=== PATIENT | female | born 1985 | race Caucasian/White ===

== ENCOUNTER → 2020-03-24 | Outpatient (CLI) | payer BC ==
[2020-03-24 14:10] VITALS: BP 123/69; PULSE 97; RESP 16; TEMP 98.3; BMI 55.6
--- NOTE | 2020-03-24 15:42 | P.HPBAR ---
Bariatric H&P - History & Physicial H&P Date: 03/24/20 History & Physicial: Visit/CC: Initial Visit Patient initial contact: Initial weight: 140.16 kg Initial weight in pounds: 309.00 Height: 5 ft 2.5 in Initial BMI: 55.6 Last weight: Current weight: 140.16 kg Current weight in pounds: 309.00 Current BMI: 55.6 Kindred body weight (based on NIH guidelines): 51.029 kg Excess body weight loss: 0.0% The patient is a 34 year-old F who presents for Bariatric Assessment. Patient here today to discuss weight loss surgery. Patient has been interested in sleeve gastrectomy for the last 8-10 years. She said she had twins born 7 years ago. They have had some health issues over the years. Now that they are doing better she would like to focus on her own health. BMI 55. Patient with history of mild reflux and gestational diabetes. Denies other health issues. Past surgical history include , nasal. Denies history of DVT or dysphagia. No tobacco use. Patient would like to avoid gastric bypass because of dumping syndrome she states. Here today with her . Review of Systems The patient denies any acute changes in vision or hearing, no dysphagia or odynophagia, no chest pain or shortness of breath, no dysuria or hematuria, no headache, no runny nose, no rectal bleeding or melena, no unexplained weight loss Past Medical History Smoking Status: Unknown if ever smoked Surgical - Exam Vital Signs Temp Pulse Resp BP 98.3 F 97 16 123/69 03/24/20 14:07 03/24/20 14:07 03/24/20 14:07 03/24/20 14:07 Physical exam: General: Well-developed, well-nourished HEENT: Normocephalic, sclerae nonicteric Abdomen: Nontender, nondistended Extremities: No edema Neuro: Alert and oriented Bariatric Assessment & Plan (1) Morbid obesity with BMI of 50.0-59.9, adult Narrative/Plan: 34-year-old female with morbid obesity. Surgical and nonsurgical options reviewed in detail with the patient and her . Patient states she had not considered gastric bypass that much because of the dumping syndrome she had heard about. We discussed that the average weight loss with that surgery would be slightly more and given her elevated BMI that she should consider this as a viable option. At this time we'll tentatively proceed with plans for elective sleeve gastrectomy. If she is interested in investigating gastric bypass further I offered to make an appointment for her to see a bariatric surgeon that performs that surgery. We'll see patient next at time of upper endoscopy. Awai t proper documentation. Status: Acute Bariatric Checklist Checklist: Plan: Checklist: EGD: 1. Hiatal hernia: 2. H. Pylori: HgbA1c: Vitamin D: Smoking: Primary care physician referral: Christina Psychiatry clearance: Cardiology clearance: Sleep study: Diet journal: VTE risk score: VTE risk level: Rehab needs at discharge:
[2020-03-24 15:46] LABS: MCH 29.9 pg (25.0-35.0); MCHC 33.3 g/dL (31.0-37.0); MCV 89.7 fL (80.0-100.0); Mean Platelet Volume 7.2; Platelet Count 314 k/uL (150-450); RBC 4.01 m/uL (3.80-5.40); RDW 13.6 % (11.5-15.5); WBC 9.2 k/uL (3.8-10.6)
[2020-03-24 23:32] LABS: African American GFR (CKD) 83.9 (60.0-200.0); Albumin 4.4 g/dL (3.80-4.90); Albumin/Globulin Ratio 1.83 (1.60-3.17); Anion Gap 9.5 mmol/L (4.00-12.00); Calcium 8.9 mg/dL (8.7-10.3); Carbon Dioxide 24.5 mmol/L (21.6-31.8); Globulin 2.4 g/dL (1.6-3.3); Non-African American GFR(CKD) 72.4 (60.0-200.0); Potassium 4.3 mmol/L (3.5-5.5); Total Bilirubin 0.2 mg/dL (0.2-1.2); Total Protein 6.8 g/dL (6.2-8.2)
[2020-03-24 23:42] LABS: Folate, Serum 8.6 ng/mL
== END | disposition home or self-care (01) ==
LOC: BARWHC3 13:12
PROVIDERS: ATTEND Surgery
DX: E66.01 Morbid (severe) obesity due to excess calories (principal); D50.9 Iron deficiency anemia, unspecified; K90.89 Other intestinal malabsorption; E55.9 Vitamin D deficiency, unspecified; Z68.43 Body mass index [BMI] 50.0-59.9, adult
CPT/HCPCS: 80053; 82306; 82607; 82746; 83036; 83540; 84425; 85027; 93005; 99203

== ENCOUNTER 2020-04-14 09:24 | Day surgery (SDC) | payer BC ==
[2020-04-10 15:33] VITALS: BMI 55.6
[~2020-04-14 09:24] MED LIST: LACTATED RINGERS 1,000 ML IV SCH; LIDOCAINE 1% (10MG/ML) FOR IV START INTRADERMA PRN
[2020-04-14 09:57] VITALS: RESP 20; TEMP 97
[2020-04-14] MEDS ORDERED: PROPOFOL 10 MG/ML 20 ML VIAL IV ONE (10:06)
[2020-04-14] MEDS ORDERED: LIDOCAINE 1% INJ 10MG/ML (20 ML MDV) ONE (10:06)
[2020-04-14] MEDS ORDERED: MIDAZOLAM 2 MG/2 ML VIAL ONE (10:06)
[2020-04-14] MEDS ORDERED: GLYCOPYRROLATE 0.2 MG/ML 2 ML VIAL ONE (10:06)
[2020-04-14] MEDS ORDERED: KETAMINE 10 MG/ML 20 ML VIAL ONE (10:06)
--- NOTE | 2020-04-14 10:10 | P.GSHP ---
History of Present Illness H&P Date: 04/14/20 Chief Complaint: GERD 34 row female seen in the bariatric clinic. Interested in sleeve gastrectomy. History of mild reflux. No dysphagia. Past Medical History Past Medical History: No Reported History Additional Past Medical History / Comment(s): RASH IN ABDOMINAL FOLD History of Any Multi-Drug Resistant Organisms: None Reported Past Surgical History: Section, Tonsillectomy Additional Past Surgical History / Comment(s): deviated septum surgery Past Anesthesia/Blood Transfusion Reactions: No Reported Reaction Past Psychological History: Anxiety, Depression Smoking Status: Never smoker Past Alcohol Use History: Occasional Past Drug Use History: None Reported - Past Family History Mother Family Medical History: No Reported History Medications and Allergies Home Medications Medication Instructions Recorded Confirmed Type Venlafaxine HCl [Effexor XR] 150 mg PO HS 03/25/20 04/10/20 History traZODone HCL 300 mg PO HS 03/25/20 04/10/20 History Multivitamin with Iron 1 each PO DAILY 04/10/20 04/10/20 History [Multivitamins with Iron] Allergies Allergy/AdvReac Type Severity Reaction Status Date / Time diphenhydramine Allergy Anaphylaxis Verified 04/10/20 15:13 [From Benadryl] Surgical - Exam Vital Signs Temp Pulse Resp BP Pulse Ox 97 F L 66 20 123/73 94 L 04/14/20 09:39 04/14/20 09:39 04/14/20 09:39 04/14/20 09:39 04/14/20 09:39 Physical exam: General: Well-developed, well-nourished HEENT: Normocephalic, sclerae nonicteric Abdomen: Nontender, nondistended Extremities: No edema Neuro: Alert and oriented Assessment and Plan (1) GERD (gastroesophageal reflux disease) Narrative/Plan: Will proceed with upper endoscopy Current Visit: Yes Status: Acute Code(s): K21.9 - GASTRO-ESOPHAGEAL REFLUX DISEASE WITHOUT ESOPHAGITIS SNOMED Code(s): 674079792
--- NOTE | 2020-04-14 10:17 | P.PCN ---
Date of Procedure: 04/14/20 Procedure(s) Performed: Preoperative Dx: GERD Postoperative Dx: Mild gastritis Procedure: EGD with Bx Anesthesia: Sedation Endoscopist: Dr. Mir Specimens: Antrum Endoscopic Procedure: The patient was on the endoscopy table in the left decubitus position. The Olympus gastroscope was inserted into the oropharynx and passed under direct visualization to the region of the third portion of the duodenum. From that point the scope was slowly withdrawn inspecting all surfaces carefully. There were no neoplastic inflammatory or polypoid lesions throughout the duodenum. The pylorus was widely patent. The stomach was carefully inspected. There was mild gastritis present. A biopsy of the antrum took place to rule out H. pylori. Retroflexion revealed a normal hiatus. The esophagus was then carefully examined. There were no neoplastic inflammatory or polypoid lesions throughout the visualized esophagus. The patient was then taken to the recovery room in stable condition per anesthesia guidelines. Recommendations: Await biopsy results. Continue with bariatric workup
[2020-04-14 10:39] VITALS: BP 114/62; PULSE 71
== END 2020-04-14 10:53 | disposition home or self-care (01) ==
LOC: ORWHC2ENDO 09:24
PROVIDERS: ATTEND Surgery
DX: K29.50 Unspecified chronic gastritis without bleeding (principal); R21 Rash and other nonspecific skin eruption; Z98.891 History of uterine scar from previous surgery; Z90.89 Acquired absence of other organs; Z98.890 Other specified postprocedural states; F41.9 Anxiety disorder, unspecified; F32.9 Major depressive disorder, single episode, unspecified; E66.01 Morbid (severe) obesity due to excess calories; Z68.43 Body mass index [BMI] 50.0-59.9, adult; Z79.899 Other long term (current) drug therapy; Z88.8 Allergy status to other drugs, medicaments and biological substances
CPT/HCPCS: 81025; 88305; 43239; J2250; J2001; J2704

== ENCOUNTER → 2020-05-05 | Outpatient (CLI) | payer BC ==
[2020-05-05 15:06] VITALS: BP 139/84; PULSE 96; RESP 16; TEMP 98.3; BMI 54.8
--- NOTE | 2020-05-05 16:34 | P.BASOAP ---
Subjective Progress Note Date: 05/05/20 Principal diagnosis: Morbid obesity Patient returns today for recheck. Last seen 04/14 at the time of her upper endoscopy. Mild gastritis was noted. Biopsies negative for H. pylori. No other changes to her history and physical from previous. Objective - Vital Signs Vital signs: Vital Signs Temp 98.3 F 05/05/20 15:03 Pulse 96 05/05/20 15:03 Resp 16 05/05/20 15:03 BP 139/84 05/05/20 15:03 Pulse Ox Intake & Output 05/04/20 05/05/20 05/05/20 18:59 06:59 18:59 Weight 138.346 kg - Exam Abdomen: Soft, nontender, nondistended Assessment/Plan (1) Morbid obesity with BMI of 50.0-59.9, adult Narrative/Plan: Patient doing well at this time. She is interested in proceeding with sleeve g astrectomy. Recent endoscopy reviewed. Surgical consent form reviewed as well. Discussed options of robotic approach. She is agreeable. We'll proceed. Plan: Date: 05/05/20 Initial Weight: 140.16 kg Initial BMI: 55.6 Current Weight: 138.346 kg Current BMI: 54.8 Type of Surgery: Total Volume in Band: Previous Volume: Volume Removed: Volume Added: Band Size:
== END ==
LOC: BARWHC3 14:24
PROVIDERS: ATTEND Surgery
DX: E66.01 Morbid (severe) obesity due to excess calories (principal); Z68.43 Body mass index [BMI] 50.0-59.9, adult
CPT/HCPCS: 99211

== ENCOUNTER → 2020-05-25 | Outpatient (CLI) | payer BC | CPT/HCPCS: 97804 ==

== ENCOUNTER → 2020-07-23 | Outpatient (CLI) | payer BC ==
[2020-07-23 13:26] LABS: Basophils % (A) 0 %; Eosinophils # (A) 0.1 k/uL (0-0.7); Eosinophils % (A) 1 %; HCT 36.8 % (34.0-46.0); HGB 12.5 gm/dL (11.4-16.0); Lymphocytes # (A) 2.2 k/uL (1.0-4.8); Lymphocytes % (A) 22 %; MCH 29.9 pg (25.0-35.0); MCHC 33.9 g/dL (31.0-37.0); MCV 88.3 fL (80.0-100.0); Mean Platelet Volume 7.3; Monocytes # (A) 0.5 k/uL (0-1.0); Monocytes % (A) 5 %; Neutrophils % (A) 71 %; Platelet Count 335 k/uL (150-450); RBC 4.17 m/uL (3.80-5.40); RDW 14.1 % (11.5-15.5); WBC 9.8 k/uL (3.8-10.6)
[2020-07-23 13:37] LABS: ALT 21 U/L (4-34); AST 22 U/L (14-36); African American GFR (CKD) >90 (>60 ml/min/1.73 sqM); Albumin 4.5 g/dL (3.5-5.0); Alkaline Phosphatase 68 U/L (38-126); Anion Gap 10 mmol/L; Blood Urea Nitrogen 17 mg/dL (7-17); Calcium 9.7 mg/dL (8.4-10.2); Carbon Dioxide 24 mmol/L (22-30); Chloride 105 mmol/L (98-107); Glucose 92 mg/dL (74-99); Non-African American GFR(CKD) >90 (>60 ml/min/1.73 sqM); Potassium 4.3 mmol/L (3.5-5.1); Sodium 139 mmol/L (137-145); Total Bilirubin 0.2 mg/dL (0.2-1.3); Total Protein 7.6 g/dL (6.3-8.2)
== END | disposition home or self-care (01) ==
LOC: LABPAT 12:39
PROVIDERS: ATTEND Surgery
DX: Z01.812 Encounter for preprocedural laboratory examination (principal)
CPT/HCPCS: 80053; 85025

== ENCOUNTER 2020-07-27 07:45 | Inpatient (IN) | payer BC ==
[~2020-07-27 07:45] MED LIST changes: +ACETAMINOPHEN TAB 500 MG TAB PO PRN; +DEXAMETHASONE SOD PHOSPHATE 4 MG/ML 1 ML VIAL IV ONE; +ENOXAPARIN 40 MG/0.4 ML SYRINGE SQ PRN; +MIDAZOLAM 2 MG/2 ML VIAL IV PRN; +ONDANSETRON 4 MG/2 ML VIAL IVP ONE; +ONDANSETRON 4 MG/2 ML VIAL IVP PRN; +ceFAZolin 3 GM in SODIUM CHLORIDE 0.9% 100 ML IVPB PRN
--- NOTE | 2020-07-27 09:04 | P.GSHP ---
History of Present Illness H&P Date: 07/27/20 Chief Complaint: Morbid obesity 34-year-old female presents today for elective sleeve gastrectomy. Patient first seen earlier this year. Patient interested in sleeve gastrectomy rather than bypass. BMI 53. No tobacco use. History of mild reflux. No significant abdominal surgeries. Recent upper endoscopy showed mild gastritis. Patient denies history of DVT or dysphagia the past. Past Medical History Past Medical History: No Reported History, Skin Disorder Additional Past Medical History / Comment(s): Hx gestational diabetes. Occ rash in abd folds. History of Any Multi-Drug Resistant Organisms: None Reported Past Surgical History: Section, Tonsillectomy Additional Past Surgical History / Comment(s): deviated septum surgery, EGD Past Anesthesia/Blood Transfusion Reactions: No Reported Reaction Smoking Status: Never smoker - Past Family History Mother Family Medical History: No Reported History Medications and Allergies Home Medications Medication Instructions Recorded Confirmed Type Venlafaxine HCl [Effexor XR] 150 mg PO HS 03/25/20 07/22/20 History traZODone HCL 300 mg PO HS 03/25/20 07/22/20 History Multivitamin with Iron 1 each PO DAILY 04/10/20 07/22/20 History [Multivitamins with Iron] Ibuprofen [Motrin Ib] 400 - 600 mg PO Q8H PRN 07/22/20 07/22/20 History Allergies Allergy/AdvReac Type Severity Reaction Status Date / Time diphenhydramine Allergy Anaphylaxis Verified 07/22/20 15:37 [From Benadryl] Surgical - Exam Physical exam: General: Well-developed, well-nourished HEENT: Normocephalic, sclerae nonicteric Abdomen: Nontender, nondistended Extremities: No edema Neuro: Alert and oriented Assessment and Plan (1) Morbid obesity with BMI of 50.0-59.9, adult Narrative/Plan: Will proceed with laparoscopic sleeve gastrectomy at this time. The risks of bleeding, infection, stenosis, stricture, leak, abscess, fistula formation, peritonitis, poor weight loss, reflux, vomiting, conversion to an open procedure, aborting sleeve gastrectomy, IL, PE, DVT, and were discussed. The patient understands and wishes to proceed. Current Visit: No Status: Acute Code(s): E66.01 - MORBID (SEVERE) OBESITY DUE TO EXCESS CALORIES; Z68.43 - BODY MASS INDEX [BMI] 50.0-59.9, ADULT SNOMED Code(s): 718156448
[2020-07-27] MEDS ORDERED: LIDOCAINE 1% INJ 10MG/ML (20 ML MDV) ONE (10:17)
[2020-07-27] MEDS ORDERED: MIDAZOLAM 2 MG/2 ML VIAL ONE (10:17)
[2020-07-27] MEDS ORDERED: ROCURONIUM 10 MG/ML (5 ML VIAL) IV ONE (10:17)
[2020-07-27] MEDS ORDERED: SUCCINYLCHOLINE CHLORIDE VIAL 200 MG/10 ML VIAL IV ONE (10:17)
[2020-07-27] MEDS ORDERED: fentaNYL (PF) 50 MCG/ML 2 ML AMP ONE (10:17)
[2020-07-27] MEDS ORDERED: PROPOFOL 10 MG/ML 20 ML VIAL IV ONE (10:17)
[2020-07-27] MEDS ORDERED: BUPIVACAIN-EPI 0.5%-1:200,000 30 ML VIAL SQ ONE ×2 (11:09→12:14)
[2020-07-27] MEDS ORDERED: NALOXONE 0.4 MG/ML 1 ML VIAL IV PRN (12:32)
[2020-07-27] MEDS ORDERED: HYOSCYAMINE ORAL DROPS 1.875 MG/15 ML BOTTLE PO PRN (12:32)
--- NOTE | 2020-07-27 12:40 | P.OP ---
Date of Procedure: 07/27/20 Procedure(s) Performed: PREOPERATIVE DIAGNOSIS: Morbid obesity, GERD, borderline diabetes POSTOPERATIVE DIAGNOSIS: Same PROCEDURE: Laparoscopic sleeve gastrectomy SURGEON: Clarke EBL: Minimal ANESTHESIA: General COMPLICATIONS: None OPERATIVE PROCEDURE: Patient was placed in the operating table in the supine position. She was placed under general anesthesia at that time. The abdomen was prepped and draped in sterile fashion after the patient was placed in lithotomy. A 5 mm optical trocar was used to enter the abdominal cavity in the left upper quadrant. Insufflation took place to 15 millimeters mercury. An additional right subxiphoid 5 mm trocar was then placed under direct visualization and then removed. 2 additional 5 mm trochars were placed in the right upper quadrant and left upper quadrant under direct visualization and a 15 mm trocar in the supraumbilical location. The liver was retracted using a medium Paulette liver retractor through the right subxiphoid trocar site. The hiatus was inspected. The patient had no visible hiatal hernia At that point I moved to the mid aspect of the greater curvature the stomach. The short gastric vasculature was divided using a LigaSure device proximally. I then switched and divided the short gastrics distally to a 3-4 cm from the pylorus. The dissection took place up to the left diaphragmatic crura at that point. The posterior short gastrics were likewise divided using the LigaSure device. Once the stomach was fully mobilized the blunt tipped 40-Arabic bougie dilator was advanced into the stomach and advanced all the way to the prepyloric location. A black echelon 60 stapler with echelon Endopath staple line reinforcement was utilized and fired tangentially across the antrum taking care to avoid narrowing at the incisura angularis. Subsequent firings of the stapler took place. A total of 5 green echelon 60 staplers with echelon Endopath staple line reinforcement took place proximally staying on the outer edge of our dilator. Once we reached the most proximal portion of the stomach a single firing of the gold echelon [address] The oral gastric tube was reinserted. The stomach was insufflated with approximately 100 mL of methylene blue. No evidence of leak or obstruction was seen. Tisseel fibrin glue was used along the length of the staple line. The stomach remnant was removed from the 15 mm trocar site without difficulty. The fascia at the 15 more site was closed using interrupted 0 Vicryl sutures with the laparoscopic suture passer and Guan[place]ito Melchor technique. The insufflation was evacuated. The skin at all 5 incisions were closed using 4-0 Monocryl sutures. Skin glue was then applied. DISPOSITION: Stable to recovery room
[2020-07-27] MEDS: HYDROmorphone 0.5 MG/0.5 ML SYRINGE IVP PRN ×5 (12:46→20:25)
[2020-07-27] MEDS: ALBUTEROL NEBULIZED 2.5 MG/3 ML INHALATION SCH ×2 (16:24→19:52)
[2020-07-27] MEDS: 0.9% NACL WITH KCL 20 MEQ/L 1,000 ML IV SCH ×2 (17:59→20:21)
[2020-07-27] MEDS: ACETAMINOPHEN IV (For NPO) 1,000 MG in EMPTY BAG 1 BAG IVPB SCH ×2 (17:59→22:50)
[2020-07-27] MEDS: ENOXAPARIN 40 MG/0.4 ML SYRINGE SQ SCH (20:20)
--- NOTE | 2020-07-27 23:49 | P.CONS ---
History of Present Illness - Reason for Consult Consult date: 07/27/20 post op medical management Requesting physician: Db Mir - Chief Complaint elective bariatric surgery - History of Present Illness 34-year-old female with morbid obesity Patient comes in today for scheduled elective bariatric surgery she elected to have laparoscopic sleeve gastrectomy patient tolerated procedure well denies any observed immediate postoperative complications denies any chest pain trouble breathing denies any nausea vomiting denies any significant abdominal pain she uses the bathroom passed urine denies any GI bleeding. Patient laying comfor table in bed she denies any medical history she denies any medical concerns at this point Review of Systems Pertinent positives as noted in HPI. All other systems were reviewed and are negative Past Medical History Past Medical History: No Reported History, Skin Disorder Additional Past Medical History / Comment(s): Hx gestational diabetes. Occ rash in abd folds. History of Any Multi-Drug Resistant Organisms: None Reported Past Surgical History: Bariatric Surgery, Section, Tonsillectomy Additional Past Surgical History / Comment(s): deviated septum surgery, EGD, SLEEVE JULY 2020 Past Anesthesia/Blood Transfusion Reactions: No Reported Reaction Past Psychological History: Anxiety, Depression Smoking Status: Never smoker Past Alcohol Use History: Occasional Past Drug Use History: None Reported - Past Family History Mother Family Medical History: No Reported History Medications and Allergies Home Medications Medication Instructions Recorded Confirmed Type Venlafaxine HCl [Effexor XR] 150 mg PO HS 03/25/20 07/27/20 History traZODone HCL 300 mg PO HS 03/25/20 07/27/20 History Multivitamin with Iron 1 each PO DAILY 04/10/20 07/27/20 History [Multivitamins with Iron] Ibuprofen [Motrin Ib] 400 - 600 mg PO Q8H PRN 07/22/20 07/27/20 History Allergies Allergy/AdvReac Type Severity Reaction Status Date / Time diphenhydramine Allergy Anaphylaxis Verified 07/27/20 09:19 [From Benadryl] Physical Exam Vitals: Vital Signs Temp Pulse Pulse Resp BP Pulse Ox 07/27/20 20:02 92 18 07/27/20 19:53 95 16 07/27/20 19:10 97.8 F 94 16 150/71 95 07/27/20 16:28 63 07/27/20 16:00 70 147/83 07/27/20 15:45 69 144/82 07/27/20 15:30 82 133/85 07/27/20 15:15 67 153/83 07/27/20 15:00 71 139/85 07/27/20 14:45 67 144/84 07/27/20 14:29 97.5 F L 78 17 148/72 93 L 07/27/20 13:30 75 14 158/88 96 07/27/20 13:15 85 14 159/81 96 07/27/20 13:00 80 16 164/89 99 07/27/20 12:45 82 16 159/90 97 07/27/20 12:31 98.2 F 98 14 147/84 96 07/27/20 09:25 97.6 F 102 H 16 134/68 98 Intake and Output 07/27/20 07/27/20 07/27/20 06:59 14:59 22:59 Intake Total 900 Output Total 10 200 Balance 890 -200 Intake: IV 900 Output: Urine 200 Estimated Blood Loss 10 Other: Weight 133.1 kg Constitutional: No acute distress, conversant, pleasant Eyes: Anicteric sclerae, moist conjunctiva, Pupils equal round reactive to light ENMT: NC/AT Oropharynx clear, no erythema, or exudates Neck: Supple, FROM, no masses, or JVD No carotid bruits No thyromegaly Lungs: Clear to auscultation Clear to percussion Normal respiratory effort, no accessory muscle use Cardiovascular: Heart regular in rate and rhythm, No murmurs, gallops, or rubs No peripheral edema Abdominal: Soft Nontender, no guarding, rebound or rigidity Abdomen moving with respiration Normoactive bowel sounds No hepatomegaly, No splenomegaly No palpable mass No abdominal wall hernia noted Skin: Normal temperature, tone, texture, turgor No induration No subcutaneous nodules No rash, lesions No ulcers Extremities: No digital cyanosis No clubbing Pedal pulses intact and symmetrical Radial pulses intact and symmetrical No calf tenderness Psychiatric: Alert and oriented to person, place and time Appropriate affect fair judgement Neuro Muscles Strength 5/5 in all 4 extremities Sensation to light touch grossly present throughout Cranial nerves II-XII grossly intact No focal sensory deficits Lymphatics: no palpable cervical or supraclavicular , or inguinal lymph nodes Assessment and Plan Assessment: Morbid obesity status post laparoscopic sleeve gastrectomy postoperative day 0 DVT prophylaxis and pain control per primary team Continue with IV fluid hydration Follow-up CBC and renal function Encouraged to use incentive spirometry Continue with SCDs Vital signs stable Thank you for allowing us to participate in the care of this patient. Do not hesitate to contact us with questions. Someone can be reached from the [facility] hospitalist group at all hours of the day at [phone].
[2020-07-28] MEDS: 0.9% NACL WITH KCL 20 MEQ/L 1,000 ML IV SCH (02:43)
[2020-07-28] MEDS: ACETAMINOPHEN IV (For NPO) 1,000 MG in EMPTY BAG 1 BAG IVPB SCH ×4 (05:28→23:50)
[2020-07-28] MEDS: ALBUTEROL NEBULIZED 2.5 MG/3 ML INHALATION SCH ×4 (07:04→20:00)
[2020-07-28] MEDS: PANTOPRAZOLE 40 MG/10 ML VIAL IV SCH (08:34)
[2020-07-28] MEDS: ENOXAPARIN 40 MG/0.4 ML SYRINGE SQ SCH ×2 (08:34→21:52)
[2020-07-28] MEDS: ONDANSETRON 4 MG/2 ML VIAL IVP PRN ×2 (08:37→16:23)
[2020-07-28] MEDS: SIMETHICONE 40 MG/0.6 ML DROPS 2,000 MG/30 ML BOTTLE PO PRN ×2 (09:03→16:09)
[2020-07-28] MEDS: HYDROmorphone 0.5 MG/0.5 ML SYRINGE IVP PRN ×2 (09:04→16:07)
--- NOTE | 2020-07-28 09:12 | FL ---
EXAMINATION TYPE: FL UGI DATE OF EXAM: 07/28/2020 COMPARISON: NONE HISTORY: Postoperative bariatric surgery/gastric sleeve TECHNIQUE: A single contrast UGI study is performed. A total of 28 seconds of fluoroscopic time was utilized during procedure and 6 images obtained. FINDINGS: Isovue 370 was administered orally. There is slight delay of contrast transit from the esophagus into the stomach, likely due to recent postoperative status. Contrast traverses normally from the stomach into the small bowel. No evidence for leak. Surgical srikanth overlie the epigastric region. IMPRESSION: Slight delay of contrast from the esophagus to the stomach without stricture is likely due to recent postoperative status. No evidence for leak.
[2020-07-28 10:00] VITALS: BMI 52.8
[2020-07-28 10:18] LABS: Basophils # (A) 0.01 X 10*3/uL (0.00-0.10); Basophils % (A) 0.1 %; Eosinophils # (A) 0 X 10*3/uL (0.04-0.35); Eosinophils % (A) 0 %; HCT 40.3 % (37.2-46.3); HGB 12.6 g/dL (12.0-15.0); Lymphocytes # (A) 1.21 X 10*3/uL (0.90-5.00); Lymphocytes % (A) 9.5 %; MCH 29.5 pg (27.0-32.0); MCHC 31.3 g/dL (32.0-37.0); MCV 94.4 fL (80.0-97.0); Mean Platelet Volume 10.9 fL (9.5-12.2); Monocytes # (A) 0.98 X 10*3/uL (0.20-1.00); Monocytes % (A) 7.7 %; Neutrophils # (A) 10.57 X 10*3/uL (1.80-7.70); Neutrophils % (A) 82.5 %; Platelet Count 352 X 10*3/uL (140-440); RBC 4.27 X 10*6/uL (4.10-5.20); RDW 13.7 % (11.5-14.5)
[2020-07-28] MEDS: 1: MVI, ADULT NO.4 WITH VIT K 10 ML, THIAMINE 100 MG, FOLIC ACID 1 MG, POTASSIUM CHLORID IV SCH ×18 (10:50→21:55)
[2020-07-28 10:51] LABS: African American GFR (CKD) 109.9 (60.0-200.0); Albumin 4.4 g/dL (3.80-4.90); Albumin/Globulin Ratio 1.42 (1.60-3.17); Anion Gap 11.7 mmol/L (4.00-12.00); BUN/Creat Ratio 12.5 Ratio (12.00-20.00); Carbon Dioxide 22.3 mmol/L (21.6-31.8); Globulin 3.1 g/dL (1.6-3.3); Magnesium 2.2 mg/dL (1.5-2.4); Non-African American GFR(CKD) 94.8 (60.0-200.0); Phosphorus 2.7 mg/dL (2.4-5.1); Potassium 4.8 mmol/L (3.5-5.5); Total Bilirubin 0.4 mg/dL (0.3-1.2); Total Protein 7.5 g/dL (6.2-8.2)
--- NOTE | 2020-07-28 12:09 | P.PN ---
<Kathy Martin - Last Filed: 07/28/20 12:02> Subjective Progress Note Date: 07/28/20 CHIEF COMPLAINT: Morbid obesity HISTORY OF PRESENT ILLNESS: Patient is status post laparoscopic sleeve gastrectomy. She does complain of abdominal pain. But does report that is controlled with pain medication. She denies any flatus or BM. She did have some nausea. She had her upper GI which showed a slight delay of contrast from the esophagus to the stomach without stricture is likely due to recent postoperative status. No evidence for leak. She has been started on her bariatric clear liquid diet. Afebrile. WBC elevated at 12.80. Patient did get a dose of Decadron. hemoglobin 12.6 creatinine 0.8 magnesium 2.2 PHYSICAL EXAM: VITAL SIGNS: Reviewed. GENERAL: Well-developed in no acute distress. HEENT: No sclera icterus. Extraocular movements grossly intact. Moist buccal mucosa. Head is atraumatic, normocephalic. ABDOMEN: Soft. Nondistended. NEUROLOGIC: Alert and oriented. Cranial nerves II through XII grossly intact. ASSESSMENT: 1. Morbid obesity status post laparoscopic sleeve gastrectomy 2. GERD 3. Borderline diabetic PLAN: -Continue bariatric clear liquid diet -Continue pain medication as needed -Continue IV fluids -Encourage patient to ambulate -Encourage patient to use incentive spirometer -GI prophylaxis Protonix and DVT prophylaxis Lovenox Physician Foster Care Case Manager note has been reviewed by physician. Signing provider agrees with the documented findings, assessment, and plan of care. Objective - Vital Signs Vital signs: Vital Signs Temp 98.1 F 07/28/20 08:00 Pulse 88 07/28/20 10:59 Resp 16 07/28/20 08:00 BP 112/70 07/28/20 08:00 Pulse Ox 99 07/28/20 08:00 Intake & Output 07/27/20 07/28/20 07/28/20 18:59 06:59 18:59 Intake Total 900 800 Output Total 210 Balance 690 800 Weight 133.1 kg 133.1 kg Intake: IV 900 Intake, IV Titration 800 Amount 0.9% NaCl with KCl 20 Meq 800 /l 1,000 ml @ 100 mls/hr IV .BY DURATION RADHA Rx#: [id number] Output: Urine 200 Estimated Blood Loss 10 Other: # Voids 2 - Labs CBC & Chem 7: 07/28/20 04:10 07/28/20 04:10 Labs: Abnormal Lab Results - Last 24 Hours (Table) 07/28/20 07/28/20 Range/Units 04:10 04:10 WBC 12.80 H (4.50-10.00) X 10*3/uL MCHC 31.3 L (32.0-37.0) g/dL Neutrophils # 10.57 H (1.80-7.70) X 10*3/uL Eosinophils # 0 L (0.04-0.35) X 10*3/uL Albumin/Globulin Ratio 1.42 L (1.60-3.17) g/dL <Db Mir - Last Filed: 07/28/20 17:17> Subjective As above. Patient doing fairly well. She did have some dry heaves today. Labs noted. Continue bariatric liquid diet. Add Toradol for pain control. Possible discharge tomorrow. Objective - Vital Signs Vital signs: Vital Signs Temp 97.8 F 07/28/20 14:00 Pulse 63 07/28/20 14:00 Resp 16 07/28/20 14:00 BP 103/61 07/28/20 14:00 Pulse Ox 100 07/28/20 14:00 Intake & Output 07/27/20 07/28/20 07/28/20 18:59 06:59 18:59 Intake Total 900 800 Output Total 210 Balance 690 800 Weight 133.1 kg 133.1 kg Intake: IV 900 Intake, IV Titration 800 Amount 0.9% NaCl with KCl 20 Meq 800 /l 1,000 ml @ 100 mls/hr IV .BY DURATION RADHA Rx#: [id number] Output: Urine 200 Estimated Blood Loss 10 Other: # Voids 2 - Labs CBC & Chem 7: 07/28/20 04:10 07/28/20 04:10 Labs: Abnormal Lab Results - Last 24 Hours (Table) 07/28/20 07/28/20 Range/Units 04:10 04:10 WBC 12.80 H (4.50-10.00) X 10*3/uL MCHC 31.3 L (32.0-37.0) g/dL Neutrophils # 10.57 H (1.80-7.70) X 10*3/uL Eosinophils # 0 L (0.04-0.35) X 10*3/uL Albumin/Globulin Ratio 1.42 L (1.60-3.17) g/dL Assessment and Plan (1) Morbid obesity with BMI of 50.0-59.9, adult Current Visit: Yes Status: Acute Code(s): E66.01 - MORBID (SEVERE) OBESITY DUE TO EXCESS CALORIES; Z68.43 - BODY MASS INDEX [BMI] 50.0-59.9, ADULT SNOMED Code(s): 605871537
--- NOTE | 2020-07-28 14:59 | P.PN ---
Subjective Progress Note Date: 07/28/20 Patient is doing fairly well today. She was up ambulating in the hallway when I saw her. She denies any abdominal pain. She is tolerating liquid diet with no difficulty. She did not pass gas as of yet. Objective - Vital Signs Vital signs: Vital Signs Temp 97.8 F 07/28/20 14:00 Pulse 63 07/28/20 14:00 Resp 16 07/28/20 14:00 BP 103/61 07/28/20 14:00 Pulse Ox 100 07/28/20 14:00 Intake & Output 07/27/20 07/28/20 07/28/20 18:59 06:59 18:59 Intake Total 900 800 Output Total 210 Balance 690 800 Weight 133.1 kg 133.1 kg Intake: IV 900 Intake, IV Titration 800 Amount 0.9% NaCl with KCl 20 Meq 800 /l 1,000 ml @ 100 mls/hr IV .BY DURATION RADHA Rx#: [id number] Output: Urine 200 Estimated Blood Loss 10 Other: # Voids 2 - Exam General: The patient is awake and alert, in no distress Eye: there is normal conjunctiva bilaterally. Neck: The neck is supple, there is no JVD. Cardiovascular: Normal S1-S2, no S3-S4, no murmurs. Respiratory: Lungs clear to auscultation bilaterally Gastrointestinal: Abdomen is soft, nontender Musculoskeletal: There is no pedal edema. Neurological:. Speech is normal. Skin: Skin is warm and dry - Labs CBC & Chem 7: 07/28/20 04:10 07/28/20 04:10 Labs: Abnormal Lab Results - Last 24 Hours (Table) 07/28/20 07/28/20 Range/Units 04:10 04:10 WBC 12.80 H (4.50-10.00) X 10*3/uL MCHC 31.3 L (32.0-37.0) g/dL Neutrophils # 10.57 H (1.80-7.70) X 10*3/uL Eosinophils # 0 L (0.04-0.35) X 10*3/uL Albumin/Globulin Ratio 1.42 L (1.60-3.17) g/dL Assessment and Plan Assessment: Morbid obesity status post laparoscopic sleeve gastrectomy postoperative day #1 Postoperative care, DVT prophylaxis, and pain control per primary team Today, I reviewed her lab work results. Mild leukocytosis is probably reactive Encouraged to use incentive spirometry Continue with SCDs Discharge planning per primary team
[2020-07-28] MEDS: KETOROLAC 15 MG/ML 1 ML VIAL IVP SCH ×2 (17:36→23:51)
[2020-07-28] MEDS ORDERED: ALPRAZolam 0.25 MG TAB PO PRN (20:18)
[2020-07-28] MEDS ORDERED: traZODone HCL 100 MG TAB PO SCH (21:00)
[2020-07-28] MEDS ORDERED: VENLAFAXINE HCL ER 150 MG CAP PO SCH (21:00)
[2020-07-29] MEDS: ACETAMINOPHEN IV (For NPO) 1,000 MG in EMPTY BAG 1 BAG IVPB SCH ×2 (05:35→11:33)
[2020-07-29] MEDS: KETOROLAC 15 MG/ML 1 ML VIAL IVP SCH ×2 (05:36→11:32)
[2020-07-29 05:46] LABS: Basophils % (A) 0 %; Eosinophils # (A) 0.1 k/uL (0-0.7); Eosinophils % (A) 1 %; HCT 33.2 % (34.0-46.0); HGB 11.2 gm/dL (11.4-16.0); Lymphocytes # (A) 2.1 k/uL (1.0-4.8); Lymphocytes % (A) 25 %; MCH 30.9 pg (25.0-35.0); MCHC 33.9 g/dL (31.0-37.0); MCV 91.3 fL (80.0-100.0); Mean Platelet Volume 7.3; Monocytes # (A) 0.5 k/uL (0-1.0); Monocytes % (A) 6 %; Neutrophils # (A) 5.7 k/uL (1.3-7.7); Neutrophils % (A) 67 %; Platelet Count 245 k/uL (150-450); RBC 3.64 m/uL (3.80-5.40); RDW 14.1 % (11.5-15.5); WBC 8.5 k/uL (3.8-10.6)
[2020-07-29 08:09] VITALS: RESP 18
[2020-07-29] MEDS: PANTOPRAZOLE 40 MG/10 ML VIAL IV SCH (08:36)
[2020-07-29] MEDS: ENOXAPARIN 40 MG/0.4 ML SYRINGE SQ SCH (08:36)
[2020-07-29] MEDS: 1: MVI, ADULT NO.4 WITH VIT K 10 ML, THIAMINE 100 MG, FOLIC ACID 1 MG, POTASSIUM CHLORID IV SCH ×6 (08:41)
[2020-07-29] MEDS: ALBUTEROL NEBULIZED 2.5 MG/3 ML INHALATION SCH ×2 (08:52→12:29)
--- NOTE | 2020-07-29 12:49 | P.DS ---
Providers Date of admission: 07/27/20 08:50 Expected date of discharge: 07/29/20 Attending physician: Db Mir Consults: 07/28/20 09:28 Consult Physician Routine Consulting Provider: Johny Palacios Consult Reason/Comments: medical management Do you want consulting provider notified?: Already Contacted Primary care physician: Nick Vasquez Hospital Course: Discharge diagnosis 1. Morbid obesity status post laparoscopic sleeve gastrectomy 2. GERD 3. Borderline diabetic Hospital course This is a 34-year-old female with a known history of morbid obesity, GERD and borderline diabetes. She has a BMI of 53. Also has a history of mild reflux. She is status post laparoscopic sleeve gastrectomy. Patient tolerated surgery well. Upper GI shows slight delay of contrast from the esophagus to the stomach without strictures likely due to recent postoperative status. No evidence of leak. Patient is tolerating bariatric clear liquid diet. Denies any nausea or vomiting. She is having flatus. She is up and ambulating. Her pain is controlled. Her incision sites are clean dry and intact. She's afebrile. She is stable for discharge. Please refer to chart for any further details. Physician Aircraft Stress Analyst note has been reviewed by physician. Signing provider agrees with the documented findings, assessment, and plan of care. Patient Condition at Discharge: Stable Plan - Discharge Summary Discharge Rx Participant: No New Discharge Prescriptions: New oxyCODONE HCL [OxyIR] 5 mg PO Q6H PRN 2 Days #5 tab PRN Reason: Pain Omeprazole [PriLOSEC] 40 mg PO DAILY #30 capsule. Acetaminophen Tab [Tylenol Tab] 650 mg PO Q4H PRN #30 tablet PRN Reason: Pain bisacodyL [Dulcolax] 5 mg PO DAILY PRN #10 tablet. PRN Reason: Constipation Simethicone 40 mg/0.6 ml Drops [Mylicon Drops] 40 mg PO PCHS PRN #30 ml PRN Reason: Gas Ondansetron Odt [Zofran Odt] 4 mg PO Q8HR PRN #9 tab PRN Reason: Nausea Continue Venlafaxine HCl [Effexor XR] 150 mg PO HS traZODone HCL 300 mg PO HS Multivitamin with Iron [Multivitamins with Iron] 1 each PO DAILY Discontinued Ibuprofen [Motrin Ib] 400 - 600 mg PO Q8H PRN PRN Reason: Pain Discharge Medication List Venlafaxine HCl [Effexor XR] 150 mg PO HS 03/25/20 [History] traZODone HCL 300 mg PO HS 03/25/20 [History] Multivitamin with Iron [Multivitamins with Iron] 1 each PO DAILY 04/10/20 [History] Acetaminophen Tab [Tylenol Tab] 650 mg PO Q4H PRN #30 tablet 07/29/20 [Rx] Omeprazole [PriLOSEC] 40 mg PO DAILY #30 capsule. 07/29/20 [Rx] Ondansetron Odt [Zofran Odt] 4 mg PO Q8HR PRN #9 tab 07/29/20 [Rx] Simethicone 40 mg/0.6 ml Drops [Mylicon Drops] 40 mg PO PCHS PRN #30 ml 07/29/20 [Rx] bisacodyL [Dulcolax] 5 mg PO DAILY PRN #10 tablet. 07/29/20 [Rx] oxyCODONE HCL [OxyIR] 5 mg PO Q6H PRN 2 Days #5 tab 07/29/20 [Rx] [facility]Ref[place] [place] [facility] Patient Instructions/Handouts: Nutrition after Bariatric Surgery (DC), Nutrition after Bariatric Surgery (GEN), Laparoscopic Sleeve Gastrectomy (DC), Laparoscopic Sleeve Gastrectomy (GEN) Activity/Diet/Wound Care/Special Instructions: No driving while taking OxyIR No lifting over 10 pounds You may shower. No soaking or tub baths for 2 weeks Very light activity until you are reevaluated at your follow up appointment with your surgeon Continue bariatric clear liquid diet Discharge Disposition: HOME SELF-CARE
--- NOTE | 2020-07-29 14:40 | P.PN ---
Subjective Progress Note Date: 07/29/20 (delayed charting seen at 0945) Principal diagnosis: obesity Patient is a 34-year-old female with a history of obesity who presented for gastric sleeve. Procedure went well. Patient seen and examined at bedside. She reports she is passing flatus, no bowel movements yet, she is tolerating her liquid diet without difficulty, no nausea. She's been up and ambulating. General: non toxic, no distress, appears at stated age Derm: warm, dry Head: atraumatic, normocephalic, symmetric Eyes: EOMI, no lid lag, anicteric sclera Mouth: no lip lesion, mucus membranes moist Cardiovascular: S1S2 reg, no murmur, positive posterior tibial pulse bilateral, Lungs: CTA bilateral, no rhonchi, no rales , no accessory muscle use Abdominal: soft, nontender to palpation diffusely, no guarding, no appreciable organomegaly Ext: no gross muscle atrophy, no edema, no contractures Neuro: CN II-XI grossly intact, no focal neuro deficits Psych: Alert, oriented, appropriate affect Patient is a 34-year-old status post gastric sleeve Morbid obesity BMI 52.8 -Status post gastric bypass -Went over medications with her and she will cut her trazodone and a small pills, her Effexor she can empty over applesauce, pudding, or placed into water from the capsule Leukocytosis, reactive and resolved Acute blood loss anemia, reactive and expected froem surgery -No need for repeat CBC Anxiety/ depression -Resume trazodone and Effexor Patient medically optimized for discharge at the discretion of surgery Thank you for allowing us to participate in the care of this pleasant patient. Do not hesitate to contact us with questions. Someone can be reached from the [facility] hospitalist group all hours of the day at [phone] or via [employer] serve. Objective - Vital Signs Vital signs: Vital Signs Temp 98.2 F 07/29/20 08:00 Pulse 81 07/29/20 08:00 Resp 18 07/29/20 08:00 BP 115/77 07/29/20 08:00 Pulse Ox 98 07/29/20 08:00 Intake & Output 07/28/20 07/29/20 07/29/20 18:59 06:59 18:59 Intake Total 240 2711.2 Balance 240 2711.2 Weight 133.1 kg Intake: Intake, IV Titration 2711.2 Amount 0.9% NaCl with KCl 20 Meq 690 /l 1,000 ml @ 100 mls/hr IV .BY DURATION [facility] Rx#: [id number] Mvi, Adult No.4 with Vit 2021.2 K 10 ml Thiamine 100 mg Folic Acid 1 mg Potassium Chloride 20 meq In Sodium Chloride 0.9% 1, 000 ml @ 100 mls/hr IV . BY DURATION [facility] Rx#: [id number] Oral 240 Other: Voiding Method Toilet Toilet # Voids 1 3 - Labs CBC & Chem 7: 07/29/20 05:28 07/28/20 04:10 Labs: Abnormal Lab Results - Last 24 Hours (Table) 07/29/20 Range/Units 05:28 RBC 3.64 L (3.80-5.40) m/uL Hgb 11.2 L (11.4-16.0) gm/dL Hct 33.2 L (34.0-46.0) %
[2020-07-29 14:48] VITALS: BP 107/68; PULSE 65; TEMP 98.3
== END 2020-07-29 15:02 | disposition home or self-care (01) | DRG 620 ==
LOC: 2ORMAIN 08:50 → 4SSUR 13:49
PROVIDERS: ADMIT Surgery; ATTEND Surgery
PROC: 0DB64Z3 Excision of Stomach, Percutaneous Endoscopic Approach, Vertical (ICD-10-PCS; principal; 2020-07-27 10:20)
DX: E66.01 Morbid (severe) obesity due to excess calories (principal); D62 Acute posthemorrhagic anemia; D72.829 Elevated white blood cell count, unspecified; F32.9 Major depressive disorder, single episode, unspecified; F41.9 Anxiety disorder, unspecified; K21.9 Gastro-esophageal reflux disease without esophagitis; R73.03 Prediabetes; Z86.32 Personal history of gestational diabetes; Z68.43 Body mass index [BMI] 50.0-59.9, adult; Z90.89 Acquired absence of other organs; Z79.899 Other long term (current) drug therapy; Z88.8 Allergy status to other drugs, medicaments and biological substances; Z98.890 Other specified postprocedural states; Z20.822 Contact with and (suspected) exposure to COVID-19
CPT/HCPCS: 74240; 80053; 81025; 83735; 84100; 85025; 87635; 88307; 94640

== ENCOUNTER → 2020-07-31 | Outpatient (CLI) | payer BC ==
[2020-07-31 10:28] VITALS: BP 117/86; PULSE 92; TEMP 97.4; BMI 51.2
== END ==
LOC: BARWHC3 09:49
PROVIDERS: ATTEND Surgery
DX: Z48.815 Encounter for surgical aftercare following surgery on the digestive system (principal); Z98.84 Bariatric surgery status
CPT/HCPCS: 99211

== ENCOUNTER → 2020-08-18 | Outpatient (CLI) | payer BC | CPT/HCPCS: 97802; 99211 ==

== ENCOUNTER → 2020-08-18 | Outpatient (CLI) | payer BC ==
[~2020-08-18] MED LIST changes: -ACETAMINOPHEN TAB 500 MG TAB PO PRN; -DEXAMETHASONE SOD PHOSPHATE 4 MG/ML 1 ML VIAL IV ONE; -ENOXAPARIN 40 MG/0.4 ML SYRINGE SQ PRN; -LACTATED RINGERS 1,000 ML IV SCH; -LIDOCAINE 1% (10MG/ML) FOR IV START INTRADERMA PRN; -MIDAZOLAM 2 MG/2 ML VIAL IV PRN; -ONDANSETRON 4 MG/2 ML VIAL IVP ONE; -ONDANSETRON 4 MG/2 ML VIAL IVP PRN; +SODIUM CHLORIDE 0.9% 1,000 ML IV ONE; -ceFAZolin 3 GM in SODIUM CHLORIDE 0.9% 100 ML IVPB PRN
[2020-08-18 14:33] VITALS: BP 115/88; PULSE 91; RESP 18; TEMP 98.1
[2020-08-18 14:45] LABS: Basophils # (A) 0.1 k/uL (0-0.2); Basophils % (A) 1 %; Eosinophils # (A) 0.1 k/uL (0-0.7); Eosinophils % (A) 1 %; HCT 35.5 % (34.0-46.0); HGB 12.1 gm/dL (11.4-16.0); Lymphocytes # (A) 1.5 k/uL (1.0-4.8); Lymphocytes % (A) 20 %; MCH 30.3 pg (25.0-35.0); MCHC 34.1 g/dL (31.0-37.0); MCV 88.9 fL (80.0-100.0); Mean Platelet Volume 7.9; Monocytes # (A) 0.6 k/uL (0-1.0); Monocytes % (A) 8 %; Neutrophils # (A) 5.3 k/uL (1.3-7.7); Neutrophils % (A) 69 %; Platelet Count 276 k/uL (150-450); RBC 3.99 m/uL (3.80-5.40); RDW 14.5 % (11.5-15.5); WBC 7.6 k/uL (3.8-10.6)
[2020-08-18 15:15] LABS: ALT 20 U/L (4-34); AST 30 U/L (14-36); African American GFR (CKD) >90 (>60 ml/min/1.73 sqM); Alkaline Phosphatase 64 U/L (38-126); Anion Gap 8 mmol/L; Blood Urea Nitrogen 15 mg/dL (7-17); Calcium 9.2 mg/dL (8.4-10.2); Carbon Dioxide 27 mmol/L (22-30); Chloride 102 mmol/L (98-107); Glucose 98 mg/dL (74-99); Non-African American GFR(CKD) >90 (>60 ml/min/1.73 sqM); Potassium 4.2 mmol/L (3.5-5.1); Sodium 137 mmol/L (137-145); Total Bilirubin 0.6 mg/dL (0.2-1.3)
== END ==
LOC: PROCWHC3 14:16
PROVIDERS: ATTEND Surgery
DX: E86.0 Dehydration (principal); Z88.8 Allergy status to other drugs, medicaments and biological substances
CPT/HCPCS: 36415; 80053; 85025; 96360

== ENCOUNTER → 2020-08-19 | Outpatient (CLI) | payer BC ==
[2020-08-19] MEDS: SODIUM CHLORIDE 0.9% 1,000 ML IV SCH ×2 (11:40→12:55)
[2020-08-19 11:50] VITALS: BP 100/66; PULSE 80; RESP 16; TEMP 97.9
== END ==
LOC: PROCWHC3 11:39
PROVIDERS: ATTEND Surgery
DX: E86.0 Dehydration (principal); Z88.8 Allergy status to other drugs, medicaments and biological substances
CPT/HCPCS: 96360; 96361

== ENCOUNTER → 2020-08-19 | Outpatient (CLI) | payer BC ==
[2020-08-19 11:49] VITALS: BP 100/66; PULSE 80; TEMP 98; BMI 50.5
--- NOTE | 2020-08-19 12:29 | P.BASOAP ---
Subjective Progress Note Date: 08/19/20 Principal diagnosis: Abdominal pain Patient was contacted by the nursing staff today. She had some dry heaves last night. Today she has not drank anything yet after talking to the nursing staff. She has no pain at this time. She did have a CAT scan performed which showed no evidence of leak. Minimal induration around the sleeve itself. No hematoma formation. Says she feels better than yesterday. Heart rate 80. Yesterday's white blood cell count was normal without shift. Objective - Vital Signs Vital signs: Vital Signs Temp 98 F 08/19/20 11:47 Pulse 80 08/19/20 11:47 Resp BP 100/66 08/19/20 11:47 Pulse Ox Intake & Output 08/18/20 08/19/20 08/19/20 18:59 06:59 18:59 Weight 127.459 kg - Exam Abdomen: Soft, minimal epigastric tenderness, incisions clean and dry Assessment/Plan (1) Morbid obesity with BMI of 50.0-59.9, adult Narrative/Plan: Patient still has her IV and from the CAT scan. Will bolus 2 L of saline. Plan discharge following that. We will call patient tomorrow to get an update on how she is doing. Plan: Date: 08/19/20 Initial Weight: 140.16 kg Initial BMI: 55.6 Current Weight: 127.459 kg Current BMI: 50.5 Type of Surgery: Total Volume in Band: Previous Volume: Volume Removed: Volume Added: Band Size:
== END ==
LOC: BARWHC3 11:00
PROVIDERS: ATTEND Surgery
DX: E66.01 Morbid (severe) obesity due to excess calories (principal); Z68.43 Body mass index [BMI] 50.0-59.9, adult; Z88.8 Allergy status to other drugs, medicaments and biological substances
CPT/HCPCS: 99211

== ENCOUNTER → 2020-08-19 | Outpatient (CLI) | payer BC ==
--- NOTE | 2020-08-19 11:16 | CT ---
EXAMINATION TYPE: CT abdomen pelvis w con DATE OF EXAM: 08/19/2020 COMPARISON: None HISTORY: bilateral upper quadrant pain. Patient is status post gastric sleeve. CT DLP: 3482.5 mGycm CONTRAST: CT scan of the abdomen and pelvis is performed with Oral Contrast and with IV Contrast, patient injec ismael with 100 mL of Isovue 300. FINDINGS: LUNG BASES-: No visible nodule. No infiltrate. LIVER/GB: No calcified gallstones. No space occupying hepatic lesion. Biliary tree is of normal ca liber. PANCREAS: No inflammation. No distinct mass. SPLEEN: No splenic enlargement. No lesion seen. ADRENALS: No nodule. No thickening. KIDNEYS/BLADDER: No hydronephrosis. No nephrolithiasis. No distinct renal mass. Urinary bladder g rossly unremarkable. BOWEL: Normal appendix. There is mild stranding adjacent to the patient's gastric sleeve. There is n o evidence for leak or abscess at this time. No evidence for free air. There is no evidence for obstr uction as contrast is identified within the small bowel. GENITAL ORGANS: No gross abnormality. LYMPH NODES: No greater than 1cm abdominal or pelvic lymph nodes are appreciated. AORTA: No significant abnormality. OSSEOUS STRUCTURES: No significant abnormality is seen. OTHER: No significant additional abnormality is seen. IMPRESSION: 1. Gastric sleeve with mild stranding noted about its mid to proximal component however I do not see evidence for abscess, leak or obstruction at this time.
== END | disposition home or self-care (01) ==
LOC: RADCTMAIN 10:07
PROVIDERS: ATTEND Surgery
DX: Z98.84 Bariatric surgery status (principal)
CPT/HCPCS: 74177; Q9967

== ENCOUNTER → 2020-08-25 | Outpatient (CLI) | payer BC ==
[2020-08-25 14:32] VITALS: BP 98/82; PULSE 82; TEMP 98; BMI 49.5
--- NOTE | 2020-08-25 14:53 | P.BASOAP ---
Subjective Progress Note Date: 08/25/20 Principal diagnosis: Morbid obesity Patient returns for evaluation. Doing well since last week. No longer has any discomfort. Heart rate when she first came in was elevated at 112 however when I rechecked it was in the 80s. She is tolerating 60-70 ounces of liquids and greater than 60 g of protein per day. Still on omeprazole. Lost 6 pounds since last visit. Objective - Vital Signs Vital signs: Vital Signs Temp 98 F 08/25/20 14:22 Pulse 82 08/25/20 14:22 Resp BP 98/82 08/25/20 14:22 Pulse Ox Intake & Output 08/24/20 08/25/20 08/25/20 18:59 06:59 18:59 Weight 124.738 kg - Exam Abdomen: Soft, nontender, nondistended Assessment/Plan (1) Morbid obesity with BMI of 50.0-59.9, adult Narrative/Plan: Patient doing well today. No further discomfort. Monitor 14 and liquid intake. Follow-up 1 month. We'll check one month labs at this time. Plan: Date: 08/25/20 Initial Weight: 140.16 kg Initial BMI: 55.6 Current Weight: 124.738 kg Current BMI: 49.5 Type of Surgery: Total Volume in Band: Previous Volume: Volume Removed: Volume Added: Band Size:
[2020-08-25 15:52] LABS: HCT 33.1 % (34.0-46.0); HGB 12.8 gm/dL (11.4-16.0); MCH 34.3 pg (25.0-35.0); MCV 89.1 fL (80.0-100.0); Mean Platelet Volume 8.2; Platelet Count 219 k/uL (150-450); RBC 3.72 m/uL (3.80-5.40); RDW 14.4 % (11.5-15.5); WBC 6.6 k/uL (3.8-10.6)
[2020-08-25 16:00] LABS: MCHC 38.5 g/dL (31.0-37.0)
[2020-08-26 07:03] LABS: African American GFR (CKD) 109.9 (60.0-200.0); Albumin 4.1 g/dL (3.80-4.90); Albumin/Globulin Ratio 1.41 (1.60-3.17); Anion Gap 11.1 mmol/L (4.00-12.00); BUN/Creat Ratio 17.5 Ratio (12.00-20.00); Carbon Dioxide 21.9 mmol/L (21.6-31.8); Globulin 2.9 g/dL (1.6-3.3); Non-African American GFR(CKD) 94.8 (60.0-200.0); Total Bilirubin 0.4 mg/dL (0.3-1.2)
== END ==
LOC: BARWHC3 13:57
PROVIDERS: ATTEND Surgery
DX: E66.01 Morbid (severe) obesity due to excess calories (principal); Z68.42 Body mass index [BMI] 45.0-49.9, adult; Z88.8 Allergy status to other drugs, medicaments and biological substances
CPT/HCPCS: 36415; 80053; 82306; 82607; 82746; 83540; 84425; 85027; 99211

== ENCOUNTER → 2020-10-06 | Outpatient (CLI) | payer BC ==
[2020-10-06 13:43] VITALS: BP 102/71; PULSE 70; RESP 18; TEMP 98.1; BMI 46.4
--- NOTE | 2020-10-06 13:57 | P.BASOAP ---
Subjective Progress Note Date: 10/06/20 Principal diagnosis: Morbid obesity Patient returns for recheck. Was last seen 713. She had her 1 month labs at that time which were normal. She has lost 17 pounds since her last visit. Mild nausea in the morning at times. No heartburn. Remains on antiacid therapy. Denies pain. Objective - Vital Signs Vital signs: Vital Signs Temp 98.1 F 10/06/20 13:41 Pulse 70 10/06/20 13:41 Resp 18 10/06/20 13:41 BP 102/71 10/06/20 13:41 Pulse Ox Intake & Output 10/05/20 10/06/20 10/06/20 18:59 06:59 18:59 Weight 117.027 kg - Exam Abdomen: Soft, nontender, nondistended Assessment/Plan (1) Morbid obesity with BMI of 50.0-59.9, adult Narrative/Plan: Continue dietary and exercise regimen. Continue antiacids for now. Plan recheck 4-6 weeks. Check 3 months labs at that time. Plan: Date: 10/06/20 Initial Weight: 140.16 kg Initial BMI: 55.6 Current Weight: 117.027 kg Current BMI: 46.4 Type of Surgery: Total Volume in Band: Previous Volume: Volume Removed: Volume Added: Band Size:
== END ==
LOC: BARWHC3 13:11
PROVIDERS: ATTEND Surgery
DX: E66.01 Morbid (severe) obesity due to excess calories (principal); Z68.42 Body mass index [BMI] 45.0-49.9, adult; Z88.8 Allergy status to other drugs, medicaments and biological substances
CPT/HCPCS: 99211

== ENCOUNTER → 2020-12-29 | Outpatient (CLI) | payer BC ==
[2020-12-29 15:00] VITALS: BP 113/75; PULSE 76; RESP 16; TEMP 98; BMI 43.3
--- NOTE | 2020-12-29 15:33 | P.BASOAP ---
Subjective Progress Note Date: 12/29/20 Principal diagnosis: Morbid obesity Patient returns for evaluation. Last seen 10/06. Morning nausea has resolved. She has had GERD symptoms twice. She has been off of her antiacids for the last 2 weeks. Avoids eating after 6:30 PM. Patient says her weight loss has plateaued somewhat. She is exercising 2-3 times per week at the gym. Objective - Vital Signs Vital signs: Vital Signs Temp 98 F 12/29/20 14:58 Pulse 76 12/29/20 14:58 Resp 16 12/29/20 14:58 BP 113/75 12/29/20 14:58 Pulse Ox Intake & Output 12/28/20 12/29/20 12/29/20 18:59 06:59 18:59 Weight 109.316 kg - Exam Abdomen: Soft, nontender, nondistended Assessment/Plan (1) Morbid obesity with BMI of 50.0-59.9, adult Narrative/Plan: Patient doing well postoperative. We'll check 3 months labs at this time. Continue holding off on utilizing antiacids. We discussed possibly starting a calorie count given the recent weight loss plateau. She will also be seen by dietary today. Follow-up first week in February. Plan: Date: 12/29/20 Initial Weight: 140.16 kg Initial BMI: 55.6 Current Weight: 109.316 kg Current BMI: 43.3 Type of Surgery: Total Volume in Band: Previous Volume: Volume Removed: Volume Added: Band Size:
[2020-12-29 16:27] LABS: HCT 34.7 % (34.0-46.0); HGB 11.6 gm/dL (11.4-16.0); MCH 31.9 pg (25.0-35.0); MCHC 33.4 g/dL (31.0-37.0); MCV 95.7 fL (80.0-100.0); Mean Platelet Volume 7.2; Platelet Count 270 k/uL (150-450); RBC 3.63 m/uL (3.80-5.40); WBC 8.6 k/uL (3.8-10.6)
[2020-12-30 03:25] LABS: African American GFR (CKD) 131.2 (60.0-200.0); Albumin 4.1 g/dL (3.8-4.9); Albumin/Globulin Ratio 1.54 (1.60-3.17); Anion Gap 13.3 mmol/L (4.00-12.00); BUN/Creat Ratio 29.66 Ratio (12.00-20.00); Blood Urea Nitrogen 19.4 mg/dL (9.0-27.0); Carbon Dioxide 22.6 mmol/L (21.6-31.8); Globulin 2.7 g/dL (1.6-3.3); Non-African American GFR(CKD) 113.2 (60.0-200.0); Potassium 4.4 mmol/L (3.5-5.5); Total Bilirubin 0.3 mg/dL (0.30-1.20); Total Protein 6.8 g/dL (6.2-8.2)
== END ==
LOC: BARWHC3 14:06
PROVIDERS: ATTEND Surgery
DX: E66.01 Morbid (severe) obesity due to excess calories (principal); Z68.41 Body mass index [BMI] 40.0-44.9, adult; K90.89 Other intestinal malabsorption; E55.9 Vitamin D deficiency, unspecified; Z88.8 Allergy status to other drugs, medicaments and biological substances
CPT/HCPCS: 80053; 82306; 82607; 82746; 83036; 83540; 84425; 85027; 97803; 99211

== ENCOUNTER → 2021-02-23 | Outpatient (CLI) | payer BC ==
[2021-02-23 14:38] VITALS: BP 113/78; PULSE 68; RESP 16; TEMP 98.3; BMI 41.3
--- NOTE | 2021-02-23 15:29 | P.BASOAP ---
Subjective Progress Note Date: 02/23/21 Principal diagnosis: Morbid obesity Patient returns for recheck. Last seen on 12/29. Sleeve on 07/27. Doing well since her last visit. She has returned to exercising after she stopped for a few weeks. She lost 11 pounds more after increasing her protein intake to 80 g per day. She is off of her antiacids. She does take Tums every few weeks. No nausea or vomiting. She does have a skin rash at the bellybutton and beneath her pannus. Improving with nystatin powder. Had labs checked last visit which showed iron of 42. Objective - Vital Signs Vital signs: Vital Signs Temp 98.3 F 02/23/21 14:36 Pulse 68 02/23/21 14:36 Resp 16 02/23/21 14:36 BP 113/78 02/23/21 14:36 Pulse Ox Intake & Output 02/22/21 02/23/21 02/23/21 18:59 06:59 18:59 Weight 104.326 kg - Exam Abdomen: Soft, nontender, nondistended Assessment/Plan (1) Morbid obesity with BMI of 50.0-59.9, adult Narrative/Plan: Patient doing well today. Continue dietary and exercise regimen. Follow-up 6 weeks. Check 6 month labs at that time. Plan: Date: 02/23/21 Initial Weight: 140.16 kg Initial BMI: 55.6 Current Weight: 104.326 kg Current BMI: 41.3 Type of Surgery: Total Volume in Band: Previous Volume: Volume Removed: Volume Added: Band Size:
== END ==
LOC: BARWHC3 14:18
PROVIDERS: ATTEND Surgery
DX: E66.01 Morbid (severe) obesity due to excess calories (principal); Z88.8 Allergy status to other drugs, medicaments and biological substances; Z68.41 Body mass index [BMI] 40.0-44.9, adult
CPT/HCPCS: 99211